=== PATIENT | male | born 1995 | race Caucasian/White ===

== ENCOUNTER 2024-07-15 04:35 | Day surgery (SDC) | payer BC ==
[2024-07-07 14:04] VITALS: BMI 28.8
[2024-07-15 11:30] VITALS: TEMP 98.6
[2024-07-15 11:55] VITALS: RESP 12
[2024-07-15 14:15] VITALS: BP 113/63; PULSE 48
== END 2024-07-15 12:30 | disposition home or self-care (01) ==
LOC: JASU-ENDO 04:35
PROVIDERS: ATTEND Internal Medicine Gastroenterology
PROC: 0DB78ZX Excision of Stomach, Pylorus, Via Natural or Artificial Opening Endoscopic, Diagnostic (ICD-10-PCS; 2024-07-15)
PROC: 0DB68ZX Excision of Stomach, Via Natural or Artificial Opening Endoscopic, Diagnostic (ICD-10-PCS; 2024-07-15)
PROC: 0DB28ZX Excision of Middle Esophagus, Via Natural or Artificial Opening Endoscopic, Diagnostic (ICD-10-PCS; 2024-07-15)
PROC: 0DB38ZX Excision of Lower Esophagus, Via Natural or Artificial Opening Endoscopic, Diagnostic (ICD-10-PCS; 2024-07-15)
PROC: 0DB98ZX Excision of Duodenum, Via Natural or Artificial Opening Endoscopic, Diagnostic (ICD-10-PCS; principal; 2024-07-15 11:30)
DX: K21.00 Gastro-esophageal reflux disease with esophagitis, without bleeding (principal); K44.9 Diaphragmatic hernia without obstruction or gangrene; K29.80 Duodenitis without bleeding; K29.50 Unspecified chronic gastritis without bleeding; K25.9 Gastric ulcer, unspecified as acute or chronic, without hemorrhage or perforation; K22.10 Ulcer of esophagus without bleeding; K20.80 Other esophagitis without bleeding; R10.13 Epigastric pain; R14.2 Eructation
CPT/HCPCS: 88305-TC; 88342-TC